=== PATIENT | male | born 1990 | race African-American/Black ===

== ENCOUNTER 2019-04-02 12:23 | Emergency (ER) | payer MEDICARE ==
[~2019-04-02] VITALS: Ht 172.7 cm; Wt 70.0 kg
[2019-04-02 13:02] VITALS: BP 115/74
[2019-04-02] MEDS: MECLIZINE 25MG TABLET PO ONE (13:02)
== END 2019-04-02 14:00 | disposition home or self-care (01) ==
LOC: ER 12:23
DX: H81.10 Benign paroxysmal vertigo, unspecified ear (principal)
CPT/HCPCS: 99283; J8597

== ENCOUNTER 2021-07-18 18:18 | Emergency (ER) | payer MEDICAID, MEDICARE ==
[~2021-07-18] VITALS: Ht 170.2 cm; Wt 67.0 kg
[2021-07-18 18:24] VITALS: BP 126/70
== END 2021-07-18 19:35 | disposition left against medical advice (07) ==
LOC: ER 18:18
DX: Z53.21 Procedure and treatment not carried out due to patient leaving prior to being seen by health care provider (principal)